=== PATIENT | male | born 1940 | race Caucasian/White ===

== ENCOUNTER 2019-09-04 17:23 | Emergency (ER) | payer OTHER ==
[~2019-09-04] VITALS: Ht 172.7 cm; Wt 68.0 kg
[2019-09-04 17:55] LABS: BASOPHILS ABSOLUTE AUTO 0.04 K/mm3 (0.00-0.23); BASOPHILS PERCENT AUTO 1 % (0-2); EOSINOPHILS ABSOLUTE AUTO 0.11 K/mm3 (0.00-0.68); EOSINOPHILS PERCENT AUTO 1 % (0-6); Hematocrit 38.5 % (37.0-53.0); Hemoglobin 13.1 g/dL (13.5-17.5); IMMATURE GRAN ABSOLUTE AUTO 0.02 K/mm3 (0.00-0.10); IMMATURE GRAN PERCENT AUTO 0 % (0-1); LYMPHOCYTES ABSOLUTE AUTO 1.38 K/mm3 (0.84-5.20); LYMPHOCYTES PERCENT AUTO 18 % (21-46); MONOCYTES ABSOLUTE AUTO 0.63 K/mm3 (0.16-1.47); MONOCYTES PERCENT AUTO 8 % (4-13); Mean Corpuscular HGB 32.6 pg (26.0-34.0); Mean Corpuscular Volume 96 fL (80-100); Mean Platelet Volume 9.7 fL (9.1-12.4); NEUTROPHILS ABSOLUTE AUTO 5.62 K/mm3 (1.96-9.15); NEUTROPHILS PERCENT AUTO 72 % (41-73); Platelet Count 199 K/mm3 (150-400); RDW Coefficient Variation 13.3 % (11.7-14.2); RDW Standard Deviation 47.5 fL (35.1-46.3); Red Blood Cell Count 4.02 M/mm3 (4.30-5.90)
[2019-09-04 18:16] LABS: Alanine Aminotransfer (ALT/SGP 33 U/L (12-78); Albumin, Blood 3.3 g/dL (3.4-5.0); Albumin/Globulin Ratio 0.8 (0.8-1.8); Alk Phos 88 U/L (50-136); Anion Gap 8 mmol/L (6-16); Aspartate Aminotrans (AST/SGOT 25 U/L (12-37); Bilirubin, Total 0.3 mg/dL (0.1-1.0); Blood Urea Nitrogen 36 mg/dL (8-24); Bun/Creatinine Ratio 26.7 (12.0-20.0); CO2, Blood 23 mmol/L (21-32); Calcium, Blood 8.5 mg/dL (8.5-10.1); Chloride, Blood 107 mmol/L (98-108); Creatinine, Blood 1.35 mg/dL (0.60-1.20); Globulin, Blood 4.4 g/dL (2.2-4.0); Glomerular Filtration Rate 54 (60-); Glucose, Blood 174 mg/dL (70-99); Potassium, Blood 3.7 mmol/L (3.5-5.5); Sodium, Blood 138 mmol/L (136-145); Total Protein, Blood 7.7 g/dL (6.4-8.2); Troponin I <0.015 ng/mL (0.000-0.040)
[2019-09-04] MEDS ORDERED: METO25 PO (18:39)
[2019-09-04] MEDS ORDERED: TAMS.4ER PO (18:39)
[2019-09-04] MEDS ORDERED: XALATAN2.5 ML RIGHTEYE (20:51)
[2019-09-04] MEDS ORDERED: FISH OIL 1,001000 MG PO (20:52)
== END 2019-09-04 21:59 | disposition home or self-care (01) ==
LOC: ER 17:23
PROVIDERS: Physician Assistant
DX: I48.91 Unspecified atrial fibrillation (principal); Z88.8 Allergy status to other drugs, medicaments and biological substances; Z79.899 Other long term (current) drug therapy
CPT/HCPCS: 36415; 71046; 80053; 84484; 85025; 93005; 93010; 96374; 99285-25

== ENCOUNTER 2021-02-25 21:32 | Inpatient (IN) | payer OTHER ==
[~2021-02-25] VITALS: Ht 172.7 cm; Wt 71.0 kg
[~2021-02-25 21:32] MED LIST: FISH OIL 1,001000 MG PO; METO25 PO; TAMS.4ER PO; XALATAN2.5 ML RIGHTEYE
[2021-02-25 21:53] LABS: BASOPHILS ABSOLUTE AUTO 0.03 K/mm3 (0.00-0.23); BASOPHILS PERCENT AUTO 0 % (0-2); EOSINOPHILS ABSOLUTE AUTO 0.05 K/mm3 (0.00-0.68); EOSINOPHILS PERCENT AUTO 1 % (0-6); Hematocrit 38.4 % (37.0-53.0); Hemoglobin 13.1 g/dL (13.5-17.5); IMMATURE GRAN ABSOLUTE AUTO 0.03 K/mm3 (0.00-0.10); IMMATURE GRAN PERCENT AUTO 0 % (0-1); LYMPHOCYTES ABSOLUTE AUTO 1.18 K/mm3 (0.84-5.20); LYMPHOCYTES PERCENT AUTO 16 % (21-46); MONOCYTES ABSOLUTE AUTO 0.54 K/mm3 (0.16-1.47); MONOCYTES PERCENT AUTO 7 % (4-13); Mean Corpuscular HGB 31.9 pg (26.0-34.0); Mean Corpuscular HGB Conc 34.1 g/dL (31.5-36.5); Mean Corpuscular Volume 93 fL (80-100); Mean Platelet Volume 9.7 fL (9.1-12.4); NEUTROPHILS ABSOLUTE AUTO 5.51 K/mm3 (1.96-9.15); NEUTROPHILS PERCENT AUTO 75 % (41-73); Platelet Count 181 K/mm3 (150-400); RDW Coefficient Variation 12.9 % (11.7-14.2); RDW Standard Deviation 44.4 fL (35.1-46.3); Red Blood Cell Count 4.11 M/mm3 (4.30-5.90); White Blood Cell Count 7.34 K/mm3 (4.00-11.30)
[2021-02-25 22:25] LABS: Albumin, Blood 3.5 g/dL (3.4-5.0); Albumin/Globulin Ratio 0.9 (0.8-1.8); Bilirubin, Total 0.3 mg/dL (0.1-1.0); Bun/Creatinine Ratio 16.5 (12.0-20.0); Calcium, Blood 8.6 mg/dL (8.5-10.1); Creatinine, Blood 1.33 mg/dL (0.60-1.20); Total Protein, Blood 7.5 g/dL (6.4-8.2)
[2021-02-25 22:30] LABS: Troponin I 0.951 ng/mL (0.000-0.040)
[2021-02-26 00:58] LABS: D-Dimer, Quantitative 0.57 mg/L FEU (0.00-0.52); International Normalized Ratio 0.95; Prothrombin Time Results 10.3 Sec (9.7-11.5)
--- NOTE | 2021-02-26 05:48 | NUR ---
SHIFT SUMMARY PATIENT ARRIVED TO UNIT AT APPROXIMETLY 0030 AND FOUND TO BE A PLEASANT MAN WHO IS A&OX4, [place], AND FOLLOWING COMMANDS. IN GOOD SHAPE AND STEADY IN ROOM. BLACKFEET. CP STAYED AT TOLERABLE LEVEL OF 3 THORUGHOUT SHIFT AND CALLED IT MORE OF A DISCOMFORT THAN PAIN. EDUCATED TO INFORM RN IF BECOMES WORSE OR MORE INTENSE IN NATURE. VSS. SR/SB ON THE MONITOR. ON RA. CPAP WHILE SLEEPING. VOIDING WELL PER URINAL. NPO BESIDES ICE CHIPS. HEP DRIP AND IV FLUIDS INFUSING PER ORDER. NO ACUTE CONCERNS AT THIS TIME. WILL CONTINUE TO MONITOR UNTIL REPORT GIVEN TO DAYSHIFT RN.
[2021-02-26 08:25] LABS: BASOPHILS ABSOLUTE AUTO 0.02 K/mm3 (0.00-0.23); BASOPHILS PERCENT AUTO 0 % (0-2); EOSINOPHILS PERCENT AUTO 1 % (0-6); Hematocrit 37.4 % (37.0-53.0); Hemoglobin 12.8 g/dL (13.5-17.5); IMMATURE GRAN ABSOLUTE AUTO 0.01 K/mm3 (0.00-0.10); IMMATURE GRAN PERCENT AUTO 0 % (0-1); LYMPHOCYTES ABSOLUTE AUTO 1.03 K/mm3 (0.84-5.20); LYMPHOCYTES PERCENT AUTO 15 % (21-46); MONOCYTES ABSOLUTE AUTO 0.71 K/mm3 (0.16-1.47); MONOCYTES PERCENT AUTO 10 % (4-13); Mean Corpuscular HGB 31.8 pg (26.0-34.0); Mean Corpuscular HGB Conc 34.2 g/dL (31.5-36.5); Mean Corpuscular Volume 93 fL (80-100); Mean Platelet Volume 10.1 fL (9.1-12.4); NEUTROPHILS ABSOLUTE AUTO 5.12 K/mm3 (1.96-9.15); NEUTROPHILS PERCENT AUTO 73 % (41-73); Platelet Count 183 K/mm3 (150-400); RDW Coefficient Variation 12.8 % (11.7-14.2); RDW Standard Deviation 44.1 fL (35.1-46.3); Red Blood Cell Count 4.03 M/mm3 (4.30-5.90); White Blood Cell Count 6.99 K/mm3 (4.00-11.30)
[2021-02-26 08:51] LABS: Alanine Aminotransfer (ALT/SGP 29 U/L (12-78); Albumin, Blood 3.3 g/dL (3.4-5.0); Albumin/Globulin Ratio 0.8 (0.8-1.8); Alk Phos 65 U/L (50-136); Anion Gap 6 mmol/L (6-16); Aspartate Aminotrans (AST/SGOT 119 U/L (12-37); Bilirubin, Total 0.5 mg/dL (0.1-1.0); Blood Urea Nitrogen 21 mg/dL (8-24); Bun/Creatinine Ratio 17.1 (12.0-20.0); CO2, Blood 25 mmol/L (21-32); Calcium, Blood 8.8 mg/dL (8.5-10.1); Chloride, Blood 108 mmol/L (98-108); Creatinine, Blood 1.23 mg/dL (0.60-1.20); Globulin, Blood 3.9 g/dL (2.2-4.0); Glomerular Filtration Rate >60 (60-); Glucose, Blood 120 mg/dL (70-99); Potassium, Blood 4.4 mmol/L (3.5-5.5); Sodium, Blood 139 mmol/L (136-145); Total Protein, Blood 7.2 g/dL (6.4-8.2)
[2021-02-26 11:26] LABS: SARS-Cov-2 (COVID-19) PCR, MMC NEGATIVE (NEGATIVE)
--- NOTE | 2021-02-26 18:47 | NUR ---
SHIFT SUMMARY: RECIEVED REPORT ON 02/26/2021, PATIENT HAS AYAN ADMITTED THE PREVIOUS NIGHT WITH CHEST DISCOMFORT THAT DURING MY SHIFT UNTIL TRANSPORT TO [facility] WAS 2-3 WITH NO NEED FOR PRN MORPHINE OR NITRO. ONCE ARRIVED FROM [facility] PATIENT WAS MONITORED PER PROTOCOL AND TRANSRADIAL BAND ON THE RIGHT RADIAL ARTERY. SITE WAS WNL AIR LET OUT PER PROTOCOL AND CURRENTLY IS REMAINING ON WITH OUT ANY AIR PER PROTOCOL. CHEST DISCOMFORT RELIEVED WITH RE-STENTING OF PREVIOUS STENT. PATIENT IS AMBULATING TO USE URINAL AT THE BED SIDE. REMAINING SPO2>95 PATIENT DID ENDORSE SOB WHEN SLEEPING, AND THIS INFORMATION WAS RELAYED TO DR. BRAY AND MEDICATION CHANGED BY DR. BRAY. PATIENT EDUCATED IN INCENTIVE SPIROMETRY. PATIENT HAS BEEN SINUS CATARINO SITTING RIGHT AT 47-50. DEPARIN DRIP WAS NOT CONTINUED DUE TO TR BAND IN PLACE. A/O TIMES 4.
--- NOTE | 2021-02-26 19:50 | NUR ---
R radial TR band removed @1944. Site is C/D/I. Eri signs of bleeding or hematoma. Good sensation and strong pulse. VSS. Tegaderm in place and will continue to monitor site throughout shift.
--- NOTE | 2021-02-27 05:16 | NUR ---
SHIFT SUMMARY PATIENT FOUND TO BE A PLEASANT GENTLEMEN WHO IS A&OX4, [place], AND FOLLOWING COMMANDS. NO CP OR PRESSURE NOTED. RIGHT RADIAL TR BAND REMOVED AT START OF SHIFT AND REMAINS WNL WITHOUT SIGNS OF BLEEDING OR HEMATOMA. VSS. SR/SB ON THE MONITOR DOWN TO HIGH 40'S WHEN SLEEPING AT TIMES. ASYMPTOMATIC RESTING SOUNDLY. ON RA AND CPAP WHEN SLEEPING SATING HIGH 90'S. SOME BARKER NOTED BUT IMPROVING PER PATIENT REPORT. VOIDING WELL PER URINAL. GOOD APPETITE AND ATE ALL OF DINNER ON CARDIAC DIET. STATES HE IS VERY TIRED AND HOPING TO GET SOME GOOD SLEEP. NO ACUTE CONCERNS AT THIS TIME. WILL CONTINUE TO MONITOR UNTIL REPORT GIVEN TO HAYDEN PAULINO.
--- NOTE | 2021-02-27 08:02 | NUR ---
ASSUMED CARE PT WAS SLEEPING DURING SHIFT REPORT BUT WAS WOKEN UP BY RN JOE TO ASSESS THE RIGHT RADIAL SITE. PT HAS A TEGADERM OVER THE SITE, NO DRAINAGE, NO HEMATOMA, NO REDNESS AT THIS TIME. PT HAS FULL SENSATION IN THE HAND, AND GOOD PROFUSION NOTED VIA BIOX. PT IS REMINDED TO USE GENTLE MOVEMENTS AND NOT BEND AT THE WRIST, PT GAVE VERBAL UNDERSTANDING.
[2021-02-27] MEDS ORDERED: ASPI81CH PO (12:26)
[2021-02-27] MEDS ORDERED: EZET10 PO (12:28)
[2021-02-27] MEDS ORDERED: CLOP75 PO (12:28)
--- NOTE | 2021-02-27 13:06 | NUR ---
DISCHARGE PT IS READY FOR DISCHARGE, HE IS GOING TO GET DRESSED THEN LEAVE THE UNIT WITH THE TANNING WHEEL OPERATOR AND HIS SPOUSE. PT WAS GIVEN INSTRUCTIONS TO FOLLOW UP WITH HIS PCP AND WITH CARDIOLOGY. PT WAS ALSO GIVEN INSTRUCTIONS TO [facility] PT HAD [facility] ZIO PATCH PLAC[facility] BY [facility] WHO REVIEWED THE CARE FOR THE PATCH WITH THE PATIENT. HE IS TO WEAR IT FOR 14 DAYS. PT WAS ALSO GIVEN INSTRUCTIONS REGARDING AFTER CARE FOR THE RIGHT RADIAL SITE. PT IS STABLE AT TIME OF DISCHARGE, ON RA, DENIES CP OR PRESSURE, DENIES SOB.
== END 2021-02-27 13:12 | disposition home or self-care (01) | DRG 246 ==
LOC: ER 21:32 → PCU 21:33 → EDBEDREQ 02-26 00:38 → PCU 02-26 00:42
PROVIDERS: Emergency Medicine; Internal Medicine Interventional Cardiology; Physician Assistant; ADMIT Internal Medicine
PROC: 027034Z Dilation of Coronary Artery, One Artery with Drug-eluting Intraluminal Device, Percutaneous Approach (ICD-10-PCS; principal; 2021-02-26)
PROC: B2111ZZ Fluoroscopy of Multiple Coronary Arteries using Low Osmolar Contrast (ICD-10-PCS; 2021-02-26)
PROC: B240ZZ3 Ultrasonography of Single Coronary Artery, Intravascular (ICD-10-PCS; 2021-02-26)
PROC: 4A033BC Measurement of Arterial Pressure, Coronary, Percutaneous Approach (ICD-10-PCS; 2021-02-26)
DX: T82.855A Stenosis of coronary artery stent, initial encounter (principal); I21.4 Non-ST elevation (NSTEMI) myocardial infarction; Z20.822 Contact with and (suspected) exposure to COVID-19; N18.30 Chronic kidney disease, stage 3 unspecified; I48.91 Unspecified atrial fibrillation; I10 Essential (primary) hypertension; N40.0 Benign prostatic hyperplasia without lower urinary tract symptoms; I25.10 Atherosclerotic heart disease of native coronary artery without angina pectoris; I25.2 Old myocardial infarction; Z95.5 Presence of coronary angioplasty implant and graft; Z79.899 Other long term (current) drug therapy; Z88.8 Allergy status to other drugs, medicaments and biological substances; E78.5 Hyperlipidemia, unspecified; Z90.49 Acquired absence of other specified parts of digestive tract; Z87.891 Personal history of nicotine dependence; D64.9 Anemia, unspecified; R06.02 Shortness of breath; T45.515A Adverse effect of anticoagulants, initial encounter; Z85.038 Personal history of other malignant neoplasm of large intestine; E78.00 Pure hypercholesterolemia, unspecified
CPT/HCPCS: 36415; 71045; 76937; 80053; 84484; 85025; 85347; 85379; 85610; 85730; 92978; 93005; 93010; 93246; 93454; 93571; 94762; 96374; 96375; 96376; 99152; 99153; 99285-25; A9270; C1725; C1753; C1769; C1874; C1887; C1894; C9600; G0378; J1644; J2250; J2270; J2405; J3010; J7030; J7050; Q9967; U0004

== ENCOUNTER 2021-04-10 12:24 | Day surgery (SDC) | payer OTHER ==
[~2021-04-10] VITALS: Ht 172.7 cm; Wt 72.7 kg
[~2021-04-10 12:24] MED LIST changes: +ASPI81CH PO; +CLOP75 PO; +EZET10 PO
[2021-04-10] MEDS ORDERED: VITAMIN D31000 UNI1 PO (13:00)
[2021-04-10] MEDS ORDERED: Magnesium500 MG PO (13:00)
[2021-04-10] MEDS ORDERED: CEPH500 PO (17:41)
--- NOTE | 2021-04-10 18:36 | NUR ---
PT ARRIVED TO ROOM PCU 3 PT DENIES PAIN AT THIS TIME PT HAS PRESSURE DRESSING TO L ANT CHEST WALL S/P DUAL CHAMBER PACER NO SHADOW NOTED PT GIVEN CL AWAITING CARDIAC DIET ORIENTED TO ROOM
--- NOTE | 2021-04-10 19:00 | NUR ---
meds given as sched pt eating dinner dr mckeon to see pt will place sling when done with meal
--- NOTE | 2021-04-10 20:49 | NUR ---
PATIENT REFUSED HIS NIGHT HOME MEDS, SAYS HE WILL TAKE THEM IN THE AM, ALERT ORIENTATED ABLE TO MAKE NEEDS KNOWN, HARD OF HEARING, CALL LIGHT WITHIN REACH, URINAL AT BEDSIDE, AND BED ALARM ON.
[2021-04-11 05:57] LABS: BASOPHILS ABSOLUTE AUTO 0.04 K/mm3 (0.00-0.23); BASOPHILS PERCENT AUTO 1 % (0-2); EOSINOPHILS PERCENT AUTO 2 % (0-6); Hematocrit 38.7 % (37.0-53.0); Hemoglobin 13.4 g/dL (13.5-17.5); IMMATURE GRAN ABSOLUTE AUTO 0.02 K/mm3 (0.00-0.10); IMMATURE GRAN PERCENT AUTO 0 % (0-1); LYMPHOCYTES ABSOLUTE AUTO 1.04 K/mm3 (0.84-5.20); LYMPHOCYTES PERCENT AUTO 17 % (21-46); MONOCYTES ABSOLUTE AUTO 0.66 K/mm3 (0.16-1.47); MONOCYTES PERCENT AUTO 11 % (4-13); Mean Corpuscular HGB 32.2 pg (26.0-34.0); Mean Corpuscular HGB Conc 34.6 g/dL (31.5-36.5); Mean Corpuscular Volume 93 fL (80-100); Mean Platelet Volume 9.6 fL (9.1-12.4); NEUTROPHILS ABSOLUTE AUTO 4.17 K/mm3 (1.96-9.15); NEUTROPHILS PERCENT AUTO 69 % (41-73); Platelet Count 178 K/mm3 (150-400); RDW Coefficient Variation 12.9 % (11.7-14.2); RDW Standard Deviation 44.1 fL (35.1-46.3); Red Blood Cell Count 4.16 M/mm3 (4.30-5.90); White Blood Cell Count 6.03 K/mm3 (4.00-11.30)
[2021-04-11 06:12] LABS: Anion Gap 5 mmol/L (6-16); Blood Urea Nitrogen 22 mg/dL (8-24); Bun/Creatinine Ratio 19.6 (12.0-20.0); CO2, Blood 25 mmol/L (21-32); Calcium, Blood 8.8 mg/dL (8.5-10.1); Chloride, Blood 108 mmol/L (98-108); Creatinine, Blood 1.12 mg/dL (0.60-1.20); Glomerular Filtration Rate >60 (60-); Glucose, Blood 111 mg/dL (70-99); Potassium, Blood 4.3 mmol/L (3.5-5.5); Sodium, Blood 138 mmol/L (136-145)
--- NOTE | 2021-04-11 07:31 | NUR ---
PT RESTING IN BED DRESSING TO LCW CDI.
--- NOTE | 2021-04-11 11:24 | NUR ---
DC'D IV TO RFA LEAKING. CATHETER INTACT. PT TOLERATED WELL. IV TO LAC PT, IV ABX INFUSING W/O DIFFICULTY.
--- NOTE | 2021-04-11 14:26 | NUR ---
discharged DC'D IV, CATHETER INTACT. REVIEWED DC INSTRUCTIONS W/PT; VERBALIZED UNDERSTANDING. PT DRESSED INDEPENDENTLY. LEFT UNIT W/DRESSING CHANGES, PACEMAKER INFO, AND DISCHARGE PAPERWORK BY AMBULATION TO WAIT FOR RIDE OUTSIDE. REFUSED WC.
== END 2021-04-11 14:17 | disposition home or self-care (01) ==
LOC: MHTC 12:24 → PCU 18:23 → MHTC 04-11 14:17
PROVIDERS: Internal Medicine Cardiovascular Disease
PROC: 0JH606Z Insertion of Pacemaker, Dual Chamber into Chest Subcutaneous Tissue and Fascia, Open Approach (ICD-10-PCS; principal; 2021-04-10)
PROC: 02HK3JZ Insertion of Pacemaker Lead into Right Ventricle, Percutaneous Approach (ICD-10-PCS; principal; 2021-04-10)
PROC: 02H63JZ Insertion of Pacemaker Lead into Right Atrium, Percutaneous Approach (ICD-10-PCS; principal; 2021-04-10)
DX: I49.5 Sick sinus syndrome (principal); I48.0 Paroxysmal atrial fibrillation; I45.5 Other specified heart block; I25.2 Old myocardial infarction; I25.10 Atherosclerotic heart disease of native coronary artery without angina pectoris; Z95.5 Presence of coronary angioplasty implant and graft; B02.9 Zoster without complications; G47.33 Obstructive sleep apnea (adult) (pediatric); E11.9 Type 2 diabetes mellitus without complications; I10 Essential (primary) hypertension; N40.0 Benign prostatic hyperplasia without lower urinary tract symptoms; E78.5 Hyperlipidemia, unspecified; Z87.891 Personal history of nicotine dependence; Z79.82 Long term (current) use of aspirin; Z79.899 Other long term (current) drug therapy; Z20.822 Contact with and (suspected) exposure to COVID-19
CPT/HCPCS: 33208; 36415; 71045; 80048; 85025; 93005; 93010; 99152; 99153; A9270; C1781; C1785; C1894; C1898; J0690; J1644; J2250; J3010; J7030; J7040; Q9967

== ENCOUNTER 2021-04-14 21:34 | Emergency (ER) | payer OTHER | END 2021-04-14 23:29 | disposition home or self-care (01) | LOC: ER 21:34 | DX: I80.8 Phlebitis and thrombophlebitis of other sites (principal) ==

== ENCOUNTER 2021-08-05 18:55 | Emergency (ER) | payer OTHER ==
[~2021-08-05] VITALS: Ht 172.7 cm; Wt 70.3 kg
[~2021-08-05 18:55] MED LIST changes: +CEPH500 PO; +Magnesium500 MG PO; +VITAMIN D31000 UNI1 PO
[2021-08-05 20:01] LABS: Influenza A, PCR NEGATIVE (NEGATIVE); Influenza B, PCR NEGATIVE (NEGATIVE); Resp Syncytial Virus, PCR NEGATIVE (NEGATIVE); SARS-Cov-2 (COVID-19) PCR, MMC NEGATIVE (NEGATIVE)
[2021-08-05] MEDS ORDERED: Tessalon Perle100 MG PO (20:29)
[2021-08-05] MEDS ORDERED: Flonase 0.05% N16 GM (20:29)
== END 2021-08-05 20:36 | disposition home or self-care (01) ==
LOC: ER 18:55
PROVIDERS: Physician Assistant
DX: R09.82 Postnasal drip (principal); Z20.822 Contact with and (suspected) exposure to COVID-19; I48.91 Unspecified atrial fibrillation; Z88.8 Allergy status to other drugs, medicaments and biological substances; Z79.899 Other long term (current) drug therapy; Z79.82 Long term (current) use of aspirin
CPT/HCPCS: 0241U; 99282; A9270

== ENCOUNTER → 2024-10-21 | Outpatient (CLI) | payer OTHER ==
[~2024-10-21] MED LIST changes: +Flonase 0.05% N16 GM; +Tessalon Perle100 MG PO
[2024-10-21 15:28] LABS: Source, Urine Voided
[2024-10-21 17:47] LABS: Appearance, Urine Clear (Clear); Bilirubin, Urine Neg (Neg); Blood, Urine Neg (Neg); Color, Urine Yellow (P-Yellow); Glucose Qualitative, Urine Neg (Neg); Ketones, Urine Neg (Neg); Leukocyte Esterase, Urine Neg (Neg); Nitrite, Urine Neg (Neg); Protein, Urine 2+ (Neg); Specific Gravity, Urine 1.015 (1.003-1.022); Urobilinogen, Urine NORM (Normal)
[2024-10-21 17:57] LABS: Bacteria Rare /hpf; Mucus Light (0-Heavy); Red Blood Cells, Urine 0-2 /hpf (0-2); Squamous Epithelial Cells Not Seen /hpf (Few); White Blood Cells, Urine 0-2 /hpf (0-5)
== END | disposition home or self-care (01) ==
LOC: LAB 15:27 → LAB SHORT 15:27 → LAB FUT 10-14 14:40
PROVIDERS: Registered Nurse
DX: R31.9 Hematuria, unspecified (principal)
CPT/HCPCS: 81001

== ENCOUNTER 2025-01-16 10:05 | Day surgery (SDC) | payer OTHER ==
[2025-01-16] VITALS (13 sets, daily range): BP systolic 69–161; BP diastolic 49–119
[~2025-01-16] VITALS: Ht 172.7 cm; Wt 74.4 kg
[~2025-01-16 10:05] MED LIST changes: +ALFU10 PO; +FISH OIL 1,0001 EA10; +FISH OIL 1,0001 EA10 PO; +KLOR-CON M1010 MEQ PO; +MAGNESIUM OXID500 MG PO; +METO25ER PO; +TADA10TA PO; +XARELTO20 MG PO
[2025-01-16] MEDS ORDERED: Verapamil HCL 2.5 MG/ML 2ML Injection ONE (11:44)
[2025-01-16] MEDS ORDERED: NS 250 ML IV ONE (11:45)
[2025-01-16] MEDS ORDERED: NS 1,000 ML IV ONE ×2 (11:45→12:04)
[2025-01-16] MEDS ORDERED: Heparin Sodium 1000 Units/ML 10ML MDV ONE (11:45)
[2025-01-16] MEDS ORDERED: Midazolam HCl 1MG / ML 2ML Vial ONE (12:03)
[2025-01-16] MEDS ORDERED: FentaNYL Citrate 50 MCG/ML 2 ML Injection ONE (12:03)
--- NOTE | 2025-01-16 13:14 | NUR ---
PT RETURNED TO RECOVERY ROOM IN RECLINER. R RADIAL TR BAND SITES -ONE DISTAL AND ONE PROXIMAL NEXT TO EACH OTHER - BOTH TR BANDS ARE SOFT NON-TENDER WITH NO HEMATOMA, NO PULSATILE BLEEDING AND R WRIST BOARD IN PLACE. PT DENIES CHEST PAIN. PT DRINKING COFFEE AND EATING LUNCH. CALL LIGHT IN REACH.
--- NOTE | 2025-01-16 13:19 | NUR ---
PT RETURNED TO RECOVERY ROOM WITH SP02 PROBE IN RIGHT INDEX FINGER.
--- NOTE | 2025-01-16 13:32 | NUR ---
NO CHANGES TO R RAD/FOREARM TR BANDS. CAP REFILL < 3 SECONDS OF RIGHT THUMB.
--- NOTE | 2025-01-16 14:51 | NUR ---
17 CC OF COMBINED AIR REMOVED OUT OF DEFLATED R RAD/FOREARM TR BANDS; STILL SOFT NON-TENDER WITH NO HEMATOMA, NO PULSATILE BLEEDING. DEFLATION WAS OVER 12 MIN. DISCHARGE INSTRUCTIONS REVIEWED ALL QUESTIONS ANSWERED. FULL REPORT PROVIDED JEFFERSON GRIGSBY TO ASSUME CARE OF PT.
--- NOTE | 2025-01-16 15:14 | NUR ---
PATIENT AMBULATING AND VOIDING TO RESTROOM WITHOUT DIFFICULTY. RIGHT RADIAL TR BAND C/D/I SOFT/NONTENDER, NO EVIDENCE OF BLEEDING. PATIENT DENYING ANY PAIN. VSS ON RA.
--- NOTE | 2025-01-16 15:23 | NUR ---
PATIENT DISCHARGED HOME AT THIS TIME. ALL DISCHARGE PAPERWORK AND BELONGINGS LEFT WITH PATIENT. PIV REMOVEDD WITHOUT DIFFICULTY, CATHETER INTACT. TR BANDS X2 REMOVED, CLOTH DOT AND ARM BOARD IN PLACE. VSS ON RA. PATIENT WHEELED TO HOSPITAL ENTRANCE AND SON ABLE TO PROVIDE TRANSPORTATION HOME
== END 2025-01-16 15:23 | disposition home or self-care (01) ==
LOC: MHTC 10:05
DX: I47.20 Ventricular tachycardia, unspecified (principal); I25.10 Atherosclerotic heart disease of native coronary artery without angina pectoris; G47.33 Obstructive sleep apnea (adult) (pediatric); E11.9 Type 2 diabetes mellitus without complications; I10 Essential (primary) hypertension; N40.0 Benign prostatic hyperplasia without lower urinary tract symptoms; I48.0 Paroxysmal atrial fibrillation; I25.2 Old myocardial infarction; I49.5 Sick sinus syndrome; I08.0 Rheumatic disorders of both mitral and aortic valves; Z87.891 Personal history of nicotine dependence; Z79.01 Long term (current) use of anticoagulants; Z79.899 Other long term (current) drug therapy; Z88.5 Allergy status to narcotic agent; Z88.8 Allergy status to other drugs, medicaments and biological substances; Z95.0 Presence of cardiac pacemaker; Z95.5 Presence of coronary angioplasty implant and graft
CPT/HCPCS: 76937; 93458; 99152; 99153; C1769; C1887; C1894; J1644; J2250; J3010; J7030; J7050; Q9967